=== PATIENT | female | born 1985 | race Caucasian/White ===

== ENCOUNTER 2017-02-15 00:15 | Emergency (ER) | payer MEDICARE | END 2017-02-15 04:07 | disposition home or self-care (01) | LOC: ER 00:15 | DX: S00.83XA Contusion of other part of head, initial encounter (principal); S70.02XA Contusion of left hip, initial encounter; S80.12XA Contusion of left lower leg, initial encounter; W19.XXXA Unspecified fall, initial encounter; Y92.019 Unspecified place in single-family (private) house as the place of occurrence of the external cause; G58.9 Mononeuropathy, unspecified; F17.210 Nicotine dependence, cigarettes, uncomplicated | CPT/HCPCS: 70450; 70486; 73502; 73590; 99283-25 ==

== ENCOUNTER 2017-03-03 19:36 | Emergency (ER) | payer MEDICARE | END 2017-03-03 22:14 | disposition home or self-care (01) | LOC: ER 19:36 | DX: M54.40 Lumbago with sciatica, unspecified side (principal); R20.0 Anesthesia of skin; F17.210 Nicotine dependence, cigarettes, uncomplicated | CPT/HCPCS: 96372; 99282-25; J2930 ==